=== PATIENT | female | born 1945 ===

== ENCOUNTER 2021-01-10 22:38 | Inpatient (IN) | payer MEDICARE, OTHER ==
[~2021-01-10] VITALS: Ht 167.6 cm; Wt 69.9 kg
--- NOTE | 2021-01-10 23:35 | NUR ---
CALLED ANNE DIAZ FROM [employer] WHO WILL COME EVAL PATIENT.
--- NOTE | 2021-01-10 23:35 | NUR ---
MEDICALLY CLEARED BY DR MORENO.
[2021-01-11] MEDS ORDERED: CYCL5TAB PO (00:10)
[2021-01-11] MEDS ORDERED: FOLI1TAB94 PO (00:10)
[2021-01-11] MEDS ORDERED: GABA600T12 PO (00:10)
[2021-01-11] MEDS ORDERED: DICL20GE TOP (00:10)
[2021-01-11] MEDS ORDERED: LEVO50TA8 PO (00:10)
[2021-01-11] MEDS ORDERED: FAMO40TA7 PO (00:10)
[2021-01-11] MEDS ORDERED: TIOT18CA3 IH (00:10)
[2021-01-11] MEDS ORDERED: PANT40TA49 PO (00:10)
[2021-01-11] MEDS ORDERED: BENZ-38 PO (00:10)
[2021-01-11] MEDS ORDERED: APIX5TAB PO (00:10)
[2021-01-11] MEDS ORDERED: ROPI0.5T4 PO (00:10)
[2021-01-11] MEDS ORDERED: CLON0.5T4 PO (00:10)
[2021-01-11] MEDS ORDERED: BUSP30TA2 PO (00:10)
[2021-01-11] MEDS ORDERED: HYDR-3972 PO (00:10)
[2021-01-11] MEDS ORDERED: ROSU20TA2 PO (00:10)
[2021-01-11] MEDS ORDERED: VARE1TAB PO (00:10)
[2021-01-11] MEDS ORDERED: DICL25TA2 PO (00:10)
[2021-01-11] MEDS ORDERED: ESCI20TA PO (00:10)
[2021-01-11] MEDS ORDERED: BUSP5TAB3 PO (00:10)
[2021-01-11] MEDS ORDERED: OCULAR LUBRICANT (00:10)
[2021-01-11] MEDS ORDERED: AMOX500C2 PO (00:10)
[2021-01-11] MEDS ORDERED: LIRA0.6P2 SQ (00:10)
[2021-01-11] MEDS ORDERED: CARV25TA2 PO (00:10)
--- NOTE | 2021-01-11 00:15 | NUR ---
ANNE DIAZ FROM [employer] HERE TO EVAL PATIENT.
--- NOTE | 2021-01-11 01:05 | NUR ---
TRANSFERED TO [facility] [place] [facility] [employer].
[2021-01-11 01:15] VITALS: BP 166/89
[2021-01-11] MEDS ORDERED: MAGNESIUM HYDROXIDE 30 ML LIQUID UDC PO PRN (01:15)
[2021-01-11] MEDS ORDERED: BLOOD SUGAR DIAGNOSTIC 1 EACH STRIP VI ONE (01:15)
[2021-01-11] MEDS ORDERED: MAG HYDROX/AL HYDROX/SIMETH 30 ML LIQUID UDC PO PRN (01:15)
--- NOTE | 2021-01-11 02:27 | NUR ---
GPS: Admitted to unit earlier a 75 yr.old female who was put on a 72 hour hold for DTS. Pt.is under the care of Dr. Flores/Dr. Pedroza. Pt.is AOx4,anxious,depressed but denies feeling suicidal. Contracts for safety when asked by staff. Cooperative during admission process. Body check done/personal belongings checked for contraband. Pt's advisement and pt's rights booklet given. Unit rules explained. Oriented to unit/surroundings. Kept safe and re-assured prn. Will continue to monitor.
[2021-01-11] MEDS: LORAZEPAM 1 MG TABLET PO PRN ×2 (03:03→15:33)
[2021-01-11 07:30] VITALS: BP 148/51
[2021-01-11] MEDS ORDERED: DICLOFENAC SODIUM 2 GM TOP PRN (08:00)
[2021-01-11] MEDS: FOLIC ACID 1 MG TABLET PO SCH ×2 (08:33→09:00)
[2021-01-11] MEDS: NICOTINE 21 MG/24HR PATCH TD SCH ×2 (08:34→09:00)
[2021-01-11] MEDS: CARVEDILOL 25 MG TABLET PO SCH ×2 (08:34→17:22)
[2021-01-11] MEDS: PANTOPRAZOLE SODIUM 40 MG TABLET.DR PO SCH (08:41)
[2021-01-11] MEDS: LEVOTHYROXINE SODIUM 50 MCG TABLET PO SCH (08:42)
[2021-01-11] MEDS ORDERED: Medication Not On Formulary EA (Rosuvastatin Calcium (Crestor) 20 MG) PO SCH (09:00)
[2021-01-11] MEDS: APIXABAN 5 MG TABLET PO SCH ×2 (09:39→17:55)
--- NOTE | 2021-01-11 09:57 | NUR ---
Firearms Report: Steam Setter completed and submitted a [employer] firearms report for 5150 danger to self certifications. A copy of report has been placed in patient chart.
--- NOTE | 2021-01-11 10:28 | NUR ---
[facility] Initial Discharge Plan: Pt currently resides at [address] [place] [address] ([phone]). Pt would like to return home upon discharge. Pt's son, John Medina ([phone]) is involved in the patient's care. [facility] will continue to work with patient, family, and MD to ensure a safe and proper discharge plan.
--- NOTE | 2021-01-11 10:36 | NUR ---
[facility] Family Contact: [facility] contacted Pt's son, John Medina ([phone]) however unable to leave a voicemail at this time due to mailbox being full and no answer.
[2021-01-11] MEDS ORDERED: LIDO1ADH82 TD (12:57)
[2021-01-11] MEDS ORDERED: BENZONATATE 100 MG CAPSULE PO PRN (13:30)
[2021-01-11] MEDS: IPRATROPIUM BROMIDE 0.5 MG/2.5 ML NEBU NEB SCH ×2 (13:41→19:02)
[2021-01-11 15:00] VITALS: BP 155/85
[2021-01-11 20:07] VITALS: BP 156/87
[2021-01-11] MEDS: ropiniROLE 0.5 MG TABLET PO SCH (20:18)
[2021-01-11] MEDS: FAMOTIDINE 20 MG TABLET PO SCH (20:18)
[2021-01-11] MEDS: ATORVASTATIN 40 MG TABLET PO SCH (20:19)
[2021-01-11] MEDS: GABAPENTIN 300 MG CAPSULE PO SCH (20:19)
[2021-01-11] MEDS ORDERED: Medication Not On Formulary EA (Famotidine 40 MG) PO SCH (21:00)
[2021-01-11] MEDS: TEMAZEPAM 7.5 MG CAPSULE PO PRN (21:49)
[2021-01-12] MEDS: IPRATROPIUM BROMIDE 0.5 MG/2.5 ML NEBU NEB SCH ×4 (00:31→21:30)
[2021-01-12] MEDS: LEVOTHYROXINE SODIUM 50 MCG TABLET PO SCH (06:32)
[2021-01-12] MEDS: PANTOPRAZOLE SODIUM 40 MG TABLET.DR PO SCH (06:32)
[2021-01-12 07:30] VITALS: BP 121/49
[2021-01-12] MEDS: ESCITALOPRAM OXALATE 10 MG TABLET PO SCH (08:33)
[2021-01-12] MEDS: CARVEDILOL 25 MG TABLET PO SCH ×2 (08:34→17:11)
[2021-01-12] MEDS: FOLIC ACID 1 MG TABLET PO SCH (08:39)
[2021-01-12] MEDS: APIXABAN 5 MG TABLET PO SCH ×2 (08:39→17:08)
[2021-01-12] MEDS: NICOTINE 21 MG/24HR PATCH TD SCH (08:40)
[2021-01-12] MEDS ORDERED: ESCITALOPRAM OXALATE 10 MG TABLET NG SCH (09:00)
[2021-01-12 16:00] VITALS: BP 152/82
--- NOTE | 2021-01-12 16:07 | NUR ---
[facility] Family Contact: [facility] spoke with Pt's son, John Medina ([phone]) and discussed treatment and discharge plan.
--- NOTE | 2021-01-12 18:23 | NUR ---
RECEIVED PATIENT IS A/O X4, REMAINS ISOLATIVE STAY IN HER ROOM AT ALL TIME,COMPLAINT WITH ALL MEDICATION,STILL FEELS HELPLESS AND HOPELESS.ABLE TO AMBULATING WITH FWW ON FALL PRECAUTION.
[2021-01-12] MEDS: LORAZEPAM 1 MG TABLET PO PRN (18:58)
[2021-01-12 19:48] VITALS: BP 148/76
[2021-01-12] MEDS: ATORVASTATIN 40 MG TABLET PO SCH (20:19)
[2021-01-12] MEDS: FAMOTIDINE 20 MG TABLET PO SCH (20:19)
[2021-01-12] MEDS: ropiniROLE 0.5 MG TABLET PO SCH (20:19)
[2021-01-12] MEDS: GABAPENTIN 300 MG CAPSULE PO SCH (20:19)
[2021-01-13] MEDS: IPRATROPIUM BROMIDE 0.5 MG/2.5 ML NEBU NEB SCH ×4 (01:30→19:30)
[2021-01-13] MEDS: HYDROCODONE/APAP 5-325MG TABLET PO PRN ×2 (02:32→17:55)
[2021-01-13] MEDS: PANTOPRAZOLE SODIUM 40 MG TABLET.DR PO SCH (06:23)
[2021-01-13] MEDS: LEVOTHYROXINE SODIUM 50 MCG TABLET PO SCH (06:26)
--- NOTE | 2021-01-13 06:44 | NUR ---
PAtient slept about 5.30 hrs. Patient c/o back pain last night ,medicated with norco with good result
[2021-01-13 07:30] VITALS: BP 124/56
[2021-01-13] MEDS: NICOTINE 21 MG/24HR PATCH TD SCH (09:00)
[2021-01-13] MEDS: APIXABAN 5 MG TABLET PO SCH ×2 (11:01→16:51)
[2021-01-13] MEDS: ESCITALOPRAM OXALATE 10 MG TABLET PO SCH (11:02)
[2021-01-13] MEDS: FOLIC ACID 1 MG TABLET PO SCH (11:02)
[2021-01-13] MEDS: CARVEDILOL 25 MG TABLET PO SCH ×2 (11:02→17:01)
[2021-01-13] MEDS: LORAZEPAM 1 MG TABLET PO PRN (15:00)
[2021-01-13 16:00] VITALS: BP 150/77
--- NOTE | 2021-01-13 18:52 | NUR ---
Patient in room. Patient AOx3-4. No signs of acute distress. Patient compliant with medications and care. Patient denies SI/ HI. Patient complained of backpain, [place] PRN given as ordered. Encouraged patient to ambulate more and attend group with peers. Patient refused and stayed in room. Patient would ambulate in hallway at times. Will endorse to incoming shift for continuity of care.
[2021-01-13] MEDS: GABAPENTIN 300 MG CAPSULE PO SCH (20:05)
[2021-01-13] MEDS: FAMOTIDINE 20 MG TABLET PO SCH (20:05)
[2021-01-13] MEDS: ATORVASTATIN 40 MG TABLET PO SCH (20:06)
[2021-01-13] MEDS: ropiniROLE 0.5 MG TABLET PO SCH (20:06)
[2021-01-13 20:23] VITALS: BP 125/73
[2021-01-13] MEDS: LIDOCAINE 5% PATCH TD PRN (21:24)
[2021-01-13] MEDS: TEMAZEPAM 7.5 MG CAPSULE PO PRN (23:43)
[2021-01-14] MEDS: HYDROCODONE/APAP 5-325MG TABLET PO PRN ×3 (00:04→23:25)
[2021-01-14] MEDS: LORAZEPAM 1 MG TABLET PO PRN ×3 (01:04→20:33)
[2021-01-14] MEDS: IPRATROPIUM BROMIDE 0.5 MG/2.5 ML NEBU NEB SCH ×4 (01:45→19:11)
[2021-01-14] MEDS: PANTOPRAZOLE SODIUM 40 MG TABLET.DR PO SCH (06:17)
[2021-01-14] MEDS: LEVOTHYROXINE SODIUM 50 MCG TABLET PO SCH (06:17)
[2021-01-14] MEDS: CARVEDILOL 25 MG TABLET PO SCH ×2 (08:03→17:02)
[2021-01-14] MEDS: ESCITALOPRAM OXALATE 10 MG TABLET PO SCH (08:05)
[2021-01-14] MEDS: FOLIC ACID 1 MG TABLET PO SCH (08:05)
[2021-01-14] MEDS: CLONAZEPAM 0.5 MG TABLET PO SCH ×2 (08:07→16:32)
[2021-01-14] MEDS: APIXABAN 5 MG TABLET PO SCH ×2 (08:08→16:43)
[2021-01-14] MEDS: NICOTINE 21 MG/24HR PATCH TD SCH (08:15)
[2021-01-14 08:47] VITALS: BP 122/57
--- NOTE | 2021-01-14 18:19 | NUR ---
Patient in room, AOx3-4. No signs of acute distress. Patient compliant with medications and care. Patient ambulatory with walker, minimal assist. Patient denies SI/ HI. Patient complained of anxiety, Ativan PRN given as ordered. Patient tolerated well. Patient complained of back pain, [place] PRN given, patient tolerating well.
[2021-01-14 20:12] VITALS: BP 135/79
[2021-01-14] MEDS: FAMOTIDINE 20 MG TABLET PO SCH (20:33)
[2021-01-14] MEDS: ropiniROLE 0.5 MG TABLET PO SCH (20:33)
[2021-01-14] MEDS: ATORVASTATIN 40 MG TABLET PO SCH (20:34)
[2021-01-14] MEDS: GABAPENTIN 300 MG CAPSULE PO SCH (20:34)
[2021-01-14] MEDS: LIDOCAINE 5% PATCH TD PRN (21:15)
[2021-01-14] MEDS: TEMAZEPAM 7.5 MG CAPSULE PO PRN (21:15)
[2021-01-15] MEDS: IPRATROPIUM BROMIDE 0.5 MG/2.5 ML NEBU NEB SCH ×4 (00:31→19:00)
[2021-01-15] MEDS: LORAZEPAM 1 MG TABLET PO PRN ×2 (04:42→15:36)
[2021-01-15] MEDS: LEVOTHYROXINE SODIUM 50 MCG TABLET PO SCH (06:23)
[2021-01-15] MEDS: PANTOPRAZOLE SODIUM 40 MG TABLET.DR PO SCH (06:23)
--- NOTE | 2021-01-15 06:24 | NUR ---
Patient slept 3.30 hours last night. Most of her time was spent making frequent trips to the nurses station requesting medications and food. Supervisor Shipping Room had somewhat of a difficult time redirecting this patient. Supervisor Shipping Room was unable to engage with this patient in any meaningful conversation regarding feelings of depression , triggers or SI. Continuing to monitor for safety , pain control and SI.
[2021-01-15 07:49] VITALS: BP 144/59
[2021-01-15] MEDS: FOLIC ACID 1 MG TABLET PO SCH (10:19)
[2021-01-15] MEDS: CLONAZEPAM 0.5 MG TABLET PO SCH ×2 (10:19→17:31)
[2021-01-15] MEDS: CARVEDILOL 25 MG TABLET PO SCH ×2 (10:20→17:35)
[2021-01-15] MEDS: ESCITALOPRAM OXALATE 10 MG TABLET PO SCH (10:22)
[2021-01-15] MEDS: APIXABAN 5 MG TABLET PO SCH ×2 (10:22→17:32)
[2021-01-15] MEDS: NICOTINE 21 MG/24HR PATCH TD SCH (10:27)
[2021-01-15] MEDS: HYDROCODONE/APAP 5-325MG TABLET PO PRN ×2 (13:32→19:29)
[2021-01-15 16:19] VITALS: BP 135/77
[2021-01-15] MEDS: ACETAMINOPHEN 325 MG TABLET PO PRN (17:31)
[2021-01-15 19:56] VITALS: BP 104/62
[2021-01-15] MEDS: GABAPENTIN 300 MG CAPSULE PO SCH (20:27)
[2021-01-15] MEDS: ATORVASTATIN 40 MG TABLET PO SCH (20:27)
[2021-01-15] MEDS: ropiniROLE 0.5 MG TABLET PO SCH (20:29)
[2021-01-15] MEDS: FAMOTIDINE 20 MG TABLET PO SCH (20:29)
[2021-01-15] MEDS: TEMAZEPAM 7.5 MG CAPSULE PO PRN (21:55)
[2021-01-16] MEDS: IPRATROPIUM BROMIDE 0.5 MG/2.5 ML NEBU NEB SCH ×4 (00:30→19:00)
[2021-01-16] MEDS: LEVOTHYROXINE SODIUM 50 MCG TABLET PO SCH (06:13)
[2021-01-16] MEDS: HYDROCODONE/APAP 5-325MG TABLET PO PRN ×3 (06:15→18:10)
[2021-01-16] MEDS: PANTOPRAZOLE SODIUM 40 MG TABLET.DR PO SCH (06:16)
[2021-01-16 07:30] VITALS: BP 117/57
[2021-01-16] MEDS: CLONAZEPAM 0.5 MG TABLET PO SCH ×2 (08:05→16:03)
[2021-01-16] MEDS: FOLIC ACID 1 MG TABLET PO SCH (08:05)
[2021-01-16] MEDS: ESCITALOPRAM OXALATE 10 MG TABLET PO SCH (08:05)
[2021-01-16] MEDS: CARVEDILOL 25 MG TABLET PO SCH ×2 (08:06→17:42)
[2021-01-16] MEDS: APIXABAN 5 MG TABLET PO SCH ×2 (08:07→16:04)
[2021-01-16] MEDS: LIDOCAINE 5% PATCH TD PRN (08:08)
[2021-01-16] MEDS: NICOTINE 21 MG/24HR PATCH TD SCH ×2 (08:09→08:14)
[2021-01-16 15:29] VITALS: BP 126/69
[2021-01-16 20:05] VITALS: BP 118/64
[2021-01-16] MEDS: ATORVASTATIN 40 MG TABLET PO SCH (20:22)
[2021-01-16] MEDS: FAMOTIDINE 20 MG TABLET PO SCH (20:22)
[2021-01-16] MEDS: ropiniROLE 0.5 MG TABLET PO SCH (20:23)
[2021-01-16] MEDS: GABAPENTIN 300 MG CAPSULE PO SCH (20:23)
[2021-01-16] MEDS: ACETAMINOPHEN 325 MG TABLET PO PRN (22:07)
[2021-01-16] MEDS: TEMAZEPAM 7.5 MG CAPSULE PO PRN (22:07)
[2021-01-17] MEDS: IPRATROPIUM BROMIDE 0.5 MG/2.5 ML NEBU NEB SCH ×4 (00:30→19:30)
[2021-01-17] MEDS: LEVOTHYROXINE SODIUM 50 MCG TABLET PO SCH (06:26)
[2021-01-17] MEDS: PANTOPRAZOLE SODIUM 40 MG TABLET.DR PO SCH (06:26)
[2021-01-17 07:30] VITALS: BP 119/50
[2021-01-17] MEDS: ESCITALOPRAM OXALATE 10 MG TABLET PO SCH (08:22)
[2021-01-17] MEDS: FOLIC ACID 1 MG TABLET PO SCH (08:23)
[2021-01-17] MEDS: CARVEDILOL 25 MG TABLET PO SCH ×2 (08:23→18:00)
[2021-01-17] MEDS: CLONAZEPAM 0.5 MG TABLET PO SCH ×2 (08:23→16:33)
[2021-01-17] MEDS: APIXABAN 5 MG TABLET PO SCH ×2 (08:26→16:36)
[2021-01-17] MEDS: NICOTINE 21 MG/24HR PATCH TD SCH (08:26)
[2021-01-17] MEDS: LIDOCAINE 5% PATCH TD PRN (08:34)
--- NOTE | 2021-01-17 10:24 | NUR ---
[facility] PC Hearing: Patient had 5250 probable cause hearing today and it was upheld for grave disability.
[2021-01-17] MEDS: HYDROCODONE/APAP 5-325MG TABLET PO PRN ×2 (13:50→21:10)
[2021-01-17 15:06] VITALS: BP 110/57
[2021-01-17 20:04] VITALS: BP 137/68
[2021-01-17] MEDS: ropiniROLE 0.5 MG TABLET PO SCH (20:04)
[2021-01-17] MEDS: FAMOTIDINE 20 MG TABLET PO SCH (20:04)
[2021-01-17] MEDS: GABAPENTIN 300 MG CAPSULE PO SCH (20:04)
[2021-01-17] MEDS: ATORVASTATIN 40 MG TABLET PO SCH (20:04)
[2021-01-17] MEDS: TEMAZEPAM 7.5 MG CAPSULE PO PRN (20:25)
[2021-01-18] MEDS: IPRATROPIUM BROMIDE 0.5 MG/2.5 ML NEBU NEB SCH ×2 (01:30→07:35)
[2021-01-18] MEDS: PANTOPRAZOLE SODIUM 40 MG TABLET.DR PO SCH (06:12)
[2021-01-18] MEDS: LEVOTHYROXINE SODIUM 50 MCG TABLET PO SCH (06:12)
[2021-01-18 07:30] VITALS: BP 155/66
[2021-01-18] MEDS: ESCITALOPRAM OXALATE 10 MG TABLET PO SCH (08:02)
[2021-01-18] MEDS: FOLIC ACID 1 MG TABLET PO SCH (08:02)
[2021-01-18 08:03] VITALS: BP 155/66
[2021-01-18] MEDS: CLONAZEPAM 0.5 MG TABLET PO SCH (08:03)
[2021-01-18] MEDS: CARVEDILOL 25 MG TABLET PO SCH (08:03)
[2021-01-18] MEDS: APIXABAN 5 MG TABLET PO SCH (08:04)
[2021-01-18] MEDS: NICOTINE 21 MG/24HR PATCH TD SCH (08:10)
--- NOTE | 2021-01-18 08:21 | NUR ---
SW Discharge Note: Patient will be discharged home [address] [place] [address]. Patient's son John Medina ([phone]) will be picking up the patient at 10AM today and taking her home. Patient is alert and oriented x4 and is aware and agreeable with her discharge plan. Patient denies suicidal or homicidal ideation. Patient presents with euthymic mood and congruent affect. Patient will be following up with her psychologist Dr. Mandeep Holguin [address] [place] [address] ([phone]) and has an appointment scheduled on 01/27/21 at 1PM. Patinet will be followin up with her psychiatrist [address] [address] [place] [address] ([phone]). Patient will be following up with her primary physician Dr. Misti Arrieta [address] [facility], [place], [place] ([phone]). Patient was provided with the national suicide prevention lifeline (806-059-0424).
--- NOTE | 2021-01-18 08:46 | NUR ---
Patient discharge around 845am in stable condition. 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 Belongings and valuable items given with patient signature. Discharge instruction and papers given. verbalize understanding.
== END 2021-01-18 08:45 | disposition home or self-care (01) | DRG 881 ==
LOC: ER 22:38 → GPS 01-11 00:55
PROVIDERS: ADMIT Psychiatry & Neurology Psychiatry; ATTEND Internal Medicine
DX: F32.9 Major depressive disorder, single episode, unspecified (principal); R45.851 Suicidal ideations; F23 Brief psychotic disorder; I48.0 Paroxysmal atrial fibrillation; E11.9 Type 2 diabetes mellitus without complications; E78.5 Hyperlipidemia, unspecified; F41.9 Anxiety disorder, unspecified; J44.9 Chronic obstructive pulmonary disease, unspecified; M62.81 Muscle weakness (generalized); Z73.6 Limitation of activities due to disability; E03.9 Hypothyroidism, unspecified; Z79.01 Long term (current) use of anticoagulants
CPT/HCPCS: 36415; 71045; 93005; 94640; A4663; J3590